=== PATIENT | female | born 1975 | race Two or more races ===

== ENCOUNTER 2020-11-20 00:14 | Emergency (ER) | payer OTHER ==
[~2020-11-20] VITALS: Ht 152.4 cm; Wt 63.5 kg
[2020-11-20] MEDS ORDERED: KETO10TA2 PO (01:55)
== END 2020-11-20 02:30 | disposition home or self-care (01) ==
LOC: ER 00:14
DX: M94.0 Chondrocostal junction syndrome [Tietze] (principal)

== ENCOUNTER 2023-03-30 13:18 | Emergency (ER) | payer OTHER ==
[~2023-03-30] VITALS: Ht 167.6 cm; Wt 78.9 kg
[~2023-03-30 13:18] MED LIST: KETO10TA2 PO
== END 2023-03-30 19:10 | disposition home or self-care (01) ==
LOC: ER 13:18
PROVIDERS: Emergency Medicine
DX: N93.8 Other specified abnormal uterine and vaginal bleeding (principal)

== ENCOUNTER 2023-04-15 12:19 | Inpatient (IN) | payer OTHER ==
[~2023-04-15] VITALS: Ht 152.4 cm; Wt 74.4 kg
[2023-04-15 14:01] LABS: MEAN CELL VOLUME 88.7 fL (80.00-100.00); MEAN CORPUSCULAR HGB CONC 31.2 g/dl (32.0-36.0); PLATELET COUNT 374 K/uL (150-450); RED BLOOD COUNT 2.29 M/uL (4.00-6.00)
[2023-04-15 14:09] LABS: MEAN CORPUSCULAR HEMOGLOBIN 27.5 pg (27.00-32.0)
[2023-04-15 14:10] LABS: HEMATOCRIT 20.3 % (36.0-45.00)
[2023-04-15 14:12] LABS: HEMOGLOBIN 6.3 g/dL (12.0-15.00)
[2023-04-15 14:44] LABS: RED CELL DISTRIBUTION WIDTH 17.5 % (11.5-14.5)
[2023-04-15 15:01] LABS: INR < 0.93; PARTIAL THROMBOPLASTIN TIME 24.4 SECONDS (22.0-34.0); PROTHROMBIN TIME 9.7 SECONDS (9.0-11.5)
[2023-04-15 15:06] LABS: ALBUMIN 3.6 gm/dL (3.4-5.0); BILIRUBIN TOTAL 0.3 mg/dL (0.3-1.2); CALCIUM 8.7 mg/dL (8.5-10.1); CREATININE SERUM 0.59 mg/dL (0.55-1.02); GFR 108.79; GLOBULINA 3.5 G/DL (2.4-3.5); POTASSIUM 4.3 mEq/L (3.5-5.1); TOTAL PROTEIN 7.1 gm/dL (6.4-8.2)
[2023-04-16 02:02] LABS: PH,URINE 6.5 (5.0-8.0); URINE APPEARANCE Cloudy; URINE BILIRRUBIN Negative (NEGATIVE); URINE BLOOD Large; URINE COLOR Orange; URINE GLUCOSE Negative (NEGATIVE); URINE LEUKOCYTE Small; URINE NITRATE Negative; URINE PROTEIN Trace (NEGATIVE); URINE UROBILINOGEN 0.2 E.U./dl
[2023-04-16 02:08] LABS: URINE EPITHELIAL CELLS 4.9 uL (0.0-38.8); URINE RBC 7327.8 uL (0.0-20.8); URINE WBC 24.4 uL (0.0-23.2)
[2023-04-16 10:19] LABS: HEMATOCRIT 26.3 % (36.0-45.00); MEAN CELL VOLUME 82.9 fL (80.00-100.00); MEAN CORPUSCULAR HEMOGLOBIN 28.3 pg (27.00-32.0); MEAN CORPUSCULAR HGB CONC 34.2 g/dl (32.0-36.0); PLATELET COUNT 333 K/uL (150-450); RED BLOOD COUNT 3.17 M/uL (4.00-6.00); RED CELL DISTRIBUTION WIDTH 16.6 % (11.5-14.5)
[2023-04-17] MEDS ORDERED: SPRINTEC 28 DA1 EACH PO (08:45)
== END 2023-04-18 14:31 | disposition home or self-care (01) | DRG 812 ==
LOC: ER 12:19 → OB/GYN 17:00 → SEC-K 17:00 → OB/GYN 19:26
PROVIDERS: Emergency Medicine; ADMIT Student in an Organized Health Care Education/Training Program; ATTEND Student in an Organized Health Care Education/Training Program
PROC: 30233N1 Transfusion of Nonautologous Red Blood Cells into Peripheral Vein, Percutaneous Approach (ICD-10-PCS; principal; 2023-04-15)
PROC: BU4CZZZ Ultrasonography of Uterus and Ovaries (ICD-10-PCS; 2023-04-15)
DX: D50.0 Iron deficiency anemia secondary to blood loss (chronic) (principal); N93.8 Other specified abnormal uterine and vaginal bleeding; Z20.822 Contact with and (suspected) exposure to COVID-19

== ENCOUNTER 2023-07-14 05:30 | Day surgery (SDC) | payer OTHER ==
[2023-07-05 12:33] LABS: INR < 0.93; PARTIAL THROMBOPLASTIN TIME 29.8 SECONDS (22.0-34.0); PROTHROMBIN TIME 9.3 SECONDS (9.0-11.5)
[~2023-07-14 05:30] MED LIST changes: +SPRINTEC 28 DA1 EACH PO
== END 2023-07-14 15:45 | disposition home or self-care (01) ==
LOC: CIR.AMB 05:30
PROVIDERS: ATTEND Obstetrics & Gynecology
DX: N84.0 Polyp of corpus uteri (principal); N93.9 Abnormal uterine and vaginal bleeding, unspecified; Z20.822 Contact with and (suspected) exposure to COVID-19